=== PATIENT | female | born 1935 | race Caucasian/White ===

== ENCOUNTER 2019-07-31 07:44 | Day surgery (SDC) | payer MEDICARE ==
[2019-07-26 10:06] VITALS: BMI 39.4
[~2019-07-31 07:44] MED LIST: LACTATED RINGERS 1,000 ML IV SCH
[2019-07-31 08:04] VITALS: TEMP 98.3
[2019-07-31] MEDS ORDERED: LIDOCAINE 1% 20 ML VIAL (10MG/ML) FOR IV START INTRADERMA ONE (08:20)
[2019-07-31] MEDS ORDERED: LIDOCAINE 2%-EPI 1:100,000 20 ML VIAL ONE (08:23)
[2019-07-31] MEDS ORDERED: LIDOCAINE 1% INJ 10MG/ML (20 ML MDV) ONE (08:23)
[2019-07-31] MEDS ORDERED: PROPOFOL 10 MG/ML 20 ML VIAL IV ONE (08:23)
[2019-07-31 08:26] LABS: Glucose,Whole Blood 133 mg/dL (75-99)
--- NOTE | 2019-07-31 08:46 | P.PCN ---
Date of Procedure: 07/31/19 Description of Procedure: BRIEF HISTORY: Patient is a 84-year-old, pleasant, female who presents for outpatient EGD. The patient reports symptoms of globus and esophageal dysphagia. She reports that symptoms can occur while eating or at rest. She previously had a history of reflux treated with Zantac and Prilosec but currently is not on any antacid medications. PROCEDURE PERFORMED: Esophagogastroduodenoscopy with biopsy. PREOPERATIVE DIAGNOSIS: Esophageal dysphagia, globus. ESTIMATED BLOOD LOSS: Minimal. IV sedation per anesthesia. PROCEDURE: After informed consent was obtained, the patient was brought into the endoscopy unit. IV sedation was administered by Anesthesia under continuous monitoring. Initially the Olympus GIF-190 video endoscope was inserted into the mouth. Esophagus intubated without any difficulty. It was gradually advanced into the stomach and duodenum and carefully examined. The bulb and the second part of the duodenum appeared normal, with biopsies taken. The scope at this time was withdrawn to the stomach, adequately insufflated with air, and upon careful examination, mucosa of the antrum, body, cardia and the fundus appeared normal, except for moderate erythema in the antrum and body with superficial antral erosions suggestive of moderate gastritis with biopsies of the antrum and body taken. The scope was then withdrawn into the esophagus. The GE junction was located at 37 cm from the incisors. The esophagus appeared normal, with mid esop hageal biopsies taken. There were no erosions or ulcerations seen and the patient tolerated the procedure well. IMPRESSION: 1. Moderate gastritis in antrum and body, biopsied. 2. Duodenal biopsies. 3. Mid esophageal biopsies. RECOMMENDATIONS: The findings of this examination were discussed with the patient and her daughter. Would recommend a trial of Prilosec twice a day, to be titrated down as symptoms improve. Await pathology from biopsies. Okay to resume Plavix tomorrow.
[2019-07-31 08:53] VITALS: RESP 16
[2019-07-31 09:14] VITALS: BP 142/79; PULSE 89
== END 2019-07-31 09:46 | disposition home or self-care (01) ==
LOC: ORWHC2ENDO 07:44
PROVIDERS: ATTEND Internal Medicine
DX: K29.50 Unspecified chronic gastritis without bleeding (principal); I10 Essential (primary) hypertension; K20.0 Eosinophilic esophagitis; E66.01 Morbid (severe) obesity due to excess calories; Z68.41 Body mass index [BMI] 40.0-44.9, adult; Z90.710 Acquired absence of both cervix and uterus; Z90.49 Acquired absence of other specified parts of digestive tract; Z86.73 Personal history of transient ischemic attack (TIA), and cerebral infarction without residual deficits; H91.90 Unspecified hearing loss, unspecified ear; H54.7 Unspecified visual loss; Z97.2 Presence of dental prosthetic device (complete) (partial); Z79.02 Long term (current) use of antithrombotics/antiplatelets; Z79.82 Long term (current) use of aspirin; Z79.4 Long term (current) use of insulin; Z79.899 Other long term (current) drug therapy
CPT/HCPCS: 88305; 43239; J2001; J2704